=== PATIENT | female | born 1995 ===

== ENCOUNTER 2019-04-20 14:00 | Inpatient (IN) ==
[2019-04-20] MEDS ORDERED: RHO(D) IMMUNE GLOBULIN 300 MCG SYRINGE IM ONE (14:05)
[2019-04-20] MEDS ORDERED: OXYTOCIN/LR 20 UNIT/1,000 ML BAG IV ONE (14:05)
[2019-04-20] MEDS ORDERED: LANOLIN 50% CREAM 0.3 OZ TUBE TOP PRN (14:05)
[2019-04-20] MEDS ORDERED: WITCH HAZEL PADS 100/JAR TOP PRN (14:05)
[2019-04-20] MEDS ORDERED: ACETAMINOPHEN 325 MG TABLET PO PRN (14:05)
[2019-04-20] MEDS ORDERED: oxyCODONE/ACETAMINOPHEN 5-325 MG TABLET PO PRN (14:05)
[2019-04-20] MEDS ORDERED: DIPH/TET/ACEL PERT BOOSTER VACCINE 0.5 ML VIAL IM ONE (14:05)
[2019-04-20] MEDS ORDERED: ONDANSETRON 4 MG/2 ML VIAL IV PRN (14:05)
[2019-04-20] MEDS ORDERED: HYDROCORTISONE 2.5% RECTAL CREAM 30 GM TUBE TOP PRN (14:05)
[2019-04-20] MEDS ORDERED: MEASLES/MUMPS/RUBELLA VACCINE 0.5 ML VIAL SUBCUT ONE (14:05)
[2019-04-20] MEDS ORDERED: BENZOCAINE 20%/MENTHOL 0.5% SPRAY 56 GM CAN TOP PRN (14:05)
[2019-04-20] MEDS ORDERED: BISACODYL 10 MG SUPP RECTAL PRN (14:05)
[2019-04-20 14:34] LABS: Basophils % 0.2 % (0.0-0.8); Eosinophils % 0.1 % (0.00-10.9); Hemoglobin 10.1 GM/DL (12.0-16.0); Immature Granulocytes % 0.8 %; Immature Granulocytes Absolute 0.13 #; Lymphocytes # 0.8 10*3/uL (1.4-4.0); Lymphocytes % 4.8 % (21.3-54.2); Mean Corpuscular HGB Conc 33.7 GM/DL (32-36); Mean Corpuscular Volume 84.5 FL (87-102); Mean Platelet Volume 9.2 FL (9.6-12.0); Monocytes % 3.9 % (1.7-12.7); Neutrophils % 90.2 % (38.7-73.9); Platelet Count 308 T/CUMM (130-400); Red Blood Count 3.55 MC/CUMM (3.8-5.5); Red Cell Distribution Width 12.8 % (9.3-17.3); White Blood Count 16.8 T/CUMM (4-12)
[2019-04-20 15:16] LABS: Macrocytosis Slight; Microcytosis 1+; Segmented Neutrophils 98 % (50-85)
[2019-04-20 15:17] LABS: Platelet Estimate Adequate; Total Cells Counted 100
[2019-04-20] MEDS: DOCUSATE SODIUM 100 MG CAPSULE PO SCH (20:35)
[2019-04-21] MEDS: oxyCODONE/ACETAMINOPHEN 5-325 MG TABLET PO PRN ×2 (04:42→15:02)
[2019-04-21] MEDS: IBUPROFEN 800 MG TABLET PO PRN ×2 (04:43→15:02)
[2019-04-21 06:30] LABS: Basophils % 0.2 % (0.0-0.8); Eosinophils # 0.1 10*3/uL (0.0-0.87); Hematocrit 27.3 VOL% (35.7-47.0); Hemoglobin 8.9 GM/DL (12.0-16.0); Immature Granulocytes % 0.8 %; Immature Granulocytes Absolute 0.11 #; Lymphocytes % 14.7 % (21.3-54.2); Mean Corpuscular HGB Conc 32.6 GM/DL (32-36); Mean Corpuscular Volume 85.6 FL (87-102); Mean Platelet Volume 9.6 FL (9.6-12.0); Neutrophils % 75.3 % (38.7-73.9); Platelet Count 319 T/CUMM (130-400); Red Blood Count 3.19 MC/CUMM (3.8-5.5); Red Cell Distribution Width 13.2 % (9.3-17.3); White Blood Count 13.4 T/CUMM (4-12)
[2019-04-21] MEDS: DOCUSATE SODIUM 100 MG CAPSULE PO SCH ×2 (08:18→21:00)
[2019-04-21] MEDS: FERROUS SULFATE 325 MG TABLET PO SCH (21:00)
[2019-04-22 07:25] VITALS: BP 134/81
[2019-04-22] MEDS: FERROUS SULFATE 325 MG TABLET PO SCH (09:51)
[2019-04-22] MEDS: DOCUSATE SODIUM 100 MG CAPSULE PO SCH (09:51)
== END 2019-04-22 12:30 | disposition home or self-care (01) | DRG 561 ==
LOC: N.LDOUT 14:00 → N.LD 14:02 → N.OB 16:15
PROVIDERS: ADMIT Obstetrics & Gynecology; ATTEND Obstetrics & Gynecology